=== PATIENT | female | born 1940 | race Caucasian/White ===

== ENCOUNTER → 2016-07-26 | Outpatient (CLI) | payer OTHER ==
[~2016-07-26] MED LIST: ASPI-496 PO; DOCU100T3 PO; HYDR-3240 PO; HYDR1TAB12 PO; LISI-170 PO; ONDA4TAB10 PO; PRAV40TA2 PO
== END | disposition home or self-care (01) ==
LOC: CFH 10:47
PROVIDERS: ATTEND Internal Medicine Cardiovascular Disease
DX: I35.0 Nonrheumatic aortic (valve) stenosis (principal)
CPT/HCPCS: 93306

== ENCOUNTER → 2019-02-25 | Outpatient (CLI) | payer MEDICARE ==
[~2019-02-25] MED LIST changes: +ATEN50TA41 PO; +CHOL400C11 PO; +CLOP75TA PO; -HYDR1TAB12 PO; +HYDR1TAB13 PO; +TELM80TA PO; +VISIPAQUE 320 MG/ML, 150ML BOTTLE ONE; +VITAMIN D3
== END | disposition home or self-care (01) ==
LOC: CVU 11:31
PROVIDERS: ATTEND Internal Medicine Cardiovascular Disease
DX: I65.23 Occlusion and stenosis of bilateral carotid arteries (principal); I70.0 Atherosclerosis of aorta; I10 Essential (primary) hypertension; E78.5 Hyperlipidemia, unspecified; I35.0 Nonrheumatic aortic (valve) stenosis
CPT/HCPCS: 71275; 74174; 93880; 94010; 94726; 94729; Q9967

== ENCOUNTER 2019-03-17 05:55 | Inpatient (IN) | payer MEDICARE ==
[~2019-03-17] VITALS: Ht 149.9 cm; Wt 59.5 kg
[~2019-03-17 05:55] MED LIST changes: -VISIPAQUE 320 MG/ML, 150ML BOTTLE ONE
[2019-03-17] MEDS ORDERED: SODIUM CHLORIDE 0.9% 1,000 ML IV ONE (06:05)
[2019-03-17] MEDS ORDERED: CHLORHEXIDINE 15 ML UDC ONE (06:15)
[2019-03-17] MEDS ORDERED: ATOR40TA78 PO (06:17)
[2019-03-17] MEDS ORDERED: AMLO2.5T5 PO (06:17)
[2019-03-17] MEDS ORDERED: MULT-658 PO (06:18)
[2019-03-17 06:19] VITALS: BP 167/61
[2019-03-17] MEDS ORDERED: ONDANSETRON 2MG/ML, 2ML IVPush PRN ×2 (06:30→09:00)
[2019-03-17] MEDS ORDERED: CHLORHEXIDINE 15 ML UDC MM PRN (06:30)
[2019-03-17 06:45] LABS: BASOPHILS # (AUTO) 0.04 x10^3/uL (0-0.1); BASOPHILS % (AUTO) 0 % (0-1); EOSINOPHILS # (AUTO) 0.18 x10^3/uL (0-0.4); EOSINOPHILS % (AUTO) 2 % (1-7); LYMPHOCYTES # (AUTO) 2.16 x10^3/uL (1-3.4); LYMPHOCYTES % (AUTO) 25 % (22-44); MD NO; MEAN CORPUSCULAR HEMOGLOBIN 29.5 pg (27.0-34.8); MEAN CORPUSCULAR HGB CONC 33.3 g/dL (32.4-35.8); MEAN CORPUSCULAR VOLUME 88.6 fL (80-100); MEAN PLATELET VOLUME 7.8 fL (7.4-10.4); MONOCYTES # (AUTO) 0.69 x10^3/uL (0.2-0.8); MONOCYTES % (AUTO) 8 % (2-9); NEUTROPHILS # (AUTO) 5.76 x10^3/uL (1.8-6.8); NEUTROPHILS % (AUTO) 65 % (42-75); PLATELET COUNT 271 x10^3/uL (130-400); RED BLOOD COUNT 4.41 x10^6/uL (3.82-5.3); RED CELL DISTRIBUTION WIDTH 14.7 % (9.6-15.2)
[2019-03-17 06:56] LABS: INTERNATIONAL NORMALIZED RATIO 0.96 (0.93-1.1); PROTHROMBIN TIME 10.1 Seconds (9.6-11.5)
[2019-03-17 06:58] LABS: ALANINE AMINOTRANSFERASE 55 U/L (12-78); ALBUMIN 4.6 g/dL (3.4-5.0); ANION GAP 8 mmol/L (5-15); CALCIUM 9.7 mg/dL (8.5-10.1); CHLORIDE 104 mmol/L (98-107); CREATININE 1.21 mg/dL (0.55-1.02)
[2019-03-17] MEDS ORDERED: PLEASE ENTER HEIGHT AND WEIGHT MC SCH (07:00)
[2019-03-17 07:02] LABS: ALKALINE PHOSPHATASE 88 U/L (45-117); BILIRUBIN,TOTAL 0.5 mg/dL (0.2-1.0); TOTAL PROTEIN 8.3 g/dL (6.4-8.2)
[2019-03-17] MEDS ORDERED: FENTANYL PF 250 MCG/5ML ONE (07:23)
[2019-03-17] MEDS ORDERED: PROPOFOL 10 MG/ML, 20ML ONE (07:29)
[2019-03-17] MEDS ORDERED: HEPARIN 1,000 UNITS/ML, 30ML ONE (07:29)
[2019-03-17] MEDS ORDERED: ROCURONIUM 10MG/ML,5ML ONE (07:29)
[2019-03-17] MEDS ORDERED: ONDANSETRON 2MG/ML, 2ML ONE ×3 (07:30→07:36)
[2019-03-17] MEDS ORDERED: DEXAMETHASONE 4 MG/ML, 1ML ONE ×3 (07:30→07:36)
[2019-03-17] MEDS ORDERED: GLYCOPYRROLATE 0.2MG/1ML, 5ML ONE (07:36)
[2019-03-17] MEDS ORDERED: CEFAZOLIN 1,000 MG ONE (07:36)
[2019-03-17] MEDS ORDERED: SUCCINYLCHOLINE 20 MG/ML, 10ML ONE (07:36)
[2019-03-17] MEDS ORDERED: PHENYLEPHRINE 10 MG/ML ONE (07:36)
[2019-03-17] MEDS ORDERED: PROTAMINE SULFATE 10 MG/ML, 25ML ONE (08:32)
[2019-03-17] MEDS ORDERED: CLOPIDOGREL 300 MG TABLET PO ONE (09:00)
[2019-03-17] MEDS ORDERED: LABETALOL 5 MG/ML SYR. (IV ONLY) IVPush PRN (09:00)
[2019-03-17] MEDS ORDERED: ACETAMINOPHEN 325 MG TABLET PO PRN (09:00)
[2019-03-17] MEDS ORDERED: hydrALAzine 20 MG/ML, 1ML IVPush PRN (09:00)
[2019-03-17 10:30] VITALS: BP 140/47
[2019-03-17 15:12] VITALS: BP 144/57
[2019-03-17 16:31] VITALS: BP 104/72
[2019-03-17 19:49] VITALS: BP 123/61
[2019-03-17] MEDS: AMLODIPINE 2.5 MG TABLET PO SCH (20:47)
[2019-03-17] MEDS ORDERED: ATORVASTATIN 40 MG TABLET PO SCH (21:00)
[2019-03-17] MEDS ORDERED: TEMAZEPAM 15 MG CAPSULE PO PRN (21:30)
[2019-03-18 01:39] VITALS: BP 118/60
[2019-03-18 05:26] LABS: BASOPHILS # (AUTO) 0.02 x10^3/uL (0-0.1); BASOPHILS % (AUTO) 0 % (0-1); EOSINOPHILS # (AUTO) 0.02 x10^3/uL (0-0.4); EOSINOPHILS % (AUTO) 0 % (1-7); LYMPHOCYTES # (AUTO) 1.76 x10^3/uL (1-3.4); LYMPHOCYTES % (AUTO) 13 % (22-44); MD NO; MEAN CORPUSCULAR HEMOGLOBIN 29.3 pg (27.0-34.8); MEAN CORPUSCULAR HGB CONC 32.5 g/dL (32.4-35.8); MEAN CORPUSCULAR VOLUME 90.2 fL (80-100); MEAN PLATELET VOLUME 8.2 fL (7.4-10.4); MONOCYTES # (AUTO) 1.02 x10^3/uL (0.2-0.8); MONOCYTES % (AUTO) 8 % (2-9); NEUTROPHILS # (AUTO) 10.45 x10^3/uL (1.8-6.8); NEUTROPHILS % (AUTO) 79 % (42-75); PLATELET COUNT 209 x10^3/uL (130-400); RED BLOOD COUNT 3.75 x10^6/uL (3.82-5.3)
[2019-03-18 05:27] LABS: ANION GAP 5 mmol/L (5-15); CALCIUM 8.8 mg/dL (8.5-10.1); CHLORIDE 108 mmol/L (98-107)
[2019-03-18 05:28] LABS: CREATININE 1.01 mg/dL (0.55-1.02)
[2019-03-18 08:52] VITALS: BP 115/56
[2019-03-18] MEDS ORDERED: CHOLECALCIFEROL 400 UNITS TABLET PO SCH (09:00)
[2019-03-18] MEDS ORDERED: MULTIVITAMIN 1 TABLET PO SCH (09:00)
[2019-03-18] MEDS ORDERED: CLOPIDOGREL 75 MG TABLET PO SCH ×2 (09:00)
[2019-03-18] MEDS: AMLODIPINE 2.5 MG TABLET PO SCH (09:00)
[2019-03-18] MEDS ORDERED: ASPIRIN 81 MG TABLET EC PO SCH ×2 (09:00)
[2019-03-18] MEDS ORDERED: VALSARTAN 320 MG TABLET PO SCH (09:00)
[2019-03-18] MEDS ORDERED: DOCUSATE 100 MG CAPSULE PO SCH (09:00)
[2019-03-18] MEDS ORDERED: ACET325T26 PO (09:37)
[2019-03-18] MEDS ORDERED: TEMA15CA6 PO (09:44)
== END 2019-03-18 12:25 | disposition home or self-care (01) | DRG 266 ==
LOC: ORIP 05:55 → CCU 08:49 → 5SO 10:10 → DCLOUNGE 03-18 11:55
PROVIDERS: ADMIT Internal Medicine Cardiovascular Disease; ATTEND Internal Medicine Cardiovascular Disease
PROC: B24BZZ4 Ultrasonography of Heart with Aorta, Transesophageal (ICD-10-PCS; 2019-03-17)
PROC: 03HY32Z Insertion of Monitoring Device into Upper Artery, Percutaneous Approach (ICD-10-PCS; 2019-03-17)
PROC: B310YZZ Fluoroscopy of Thoracic Aorta using Other Contrast (ICD-10-PCS; 2019-03-17)
PROC: 02RF38Z Replacement of Aortic Valve with Zooplastic Tissue, Percutaneous Approach (ICD-10-PCS; principal; 2019-03-17 07:30)
DX: I35.0 Nonrheumatic aortic (valve) stenosis (principal); Z00.6 Encounter for examination for normal comparison and control in clinical research program; I50.33 Acute on chronic diastolic (congestive) heart failure; Z86.73 Personal history of transient ischemic attack (TIA), and cerebral infarction without residual deficits; I48.0 Paroxysmal atrial fibrillation; E78.5 Hyperlipidemia, unspecified; R00.1 Bradycardia, unspecified
CPT/HCPCS: 33361; 36415; 80048; 80053; 83880; 85025; 85347; 85610; 85730; 86850; 86900; 86923; 87081; 93005; 93306; 93312; 93321; 93325; 93355; C1760; C1769; C1894; G0378; J0690; J1100; J1644; J2405; J2704; J2720; J3010; J0330; J0360; J2370; Q9967

== ENCOUNTER 2019-04-20 13:45 | Outpatient (CLI) | payer MEDICARE ==
[~2019-04-20 13:45] MED LIST changes: +ACET325T26 PO; +AMLO2.5T5 PO; +ATOR40TA78 PO; +MULT-658 PO; +TEMA15CA6 PO
== END 2019-04-20 23:59 | disposition home or self-care (01) ==
LOC: CVU 13:45
PROVIDERS: ATTEND Internal Medicine Cardiovascular Disease
DX: I08.8 Other rheumatic multiple valve diseases (principal); I27.20 Pulmonary hypertension, unspecified; I11.9 Hypertensive heart disease without heart failure; E78.5 Hyperlipidemia, unspecified; I65.29 Occlusion and stenosis of unspecified carotid artery; Z95.2 Presence of prosthetic heart valve
CPT/HCPCS: 93306; 93356

== ENCOUNTER 2019-05-19 12:02 | Outpatient (CLI) | payer MEDICARE | END 2019-05-19 23:59 | disposition home or self-care (01) | LOC: RAD 12:02 | PROVIDERS: ATTEND Internal Medicine | DX: M47.815 Spondylosis without myelopathy or radiculopathy, thoracolumbar region (principal); M48.05 Spinal stenosis, thoracolumbar region; M54.41 Lumbago with sciatica, right side | CPT/HCPCS: 72148 ==

== ENCOUNTER → 2020-03-17 | Outpatient (CLI) | payer MEDICARE | END | disposition home or self-care (01) | LOC: CVU 13:21 | PROVIDERS: ATTEND Internal Medicine Cardiovascular Disease | DX: I07.1 Rheumatic tricuspid insufficiency (principal); I11.9 Hypertensive heart disease without heart failure; R06.02 Shortness of breath; I65.29 Occlusion and stenosis of unspecified carotid artery | CPT/HCPCS: 93306; 93356 ==

== ENCOUNTER 2020-03-31 10:27 | Day surgery (SDC) | payer MEDICARE ==
[2020-03-31] MEDS ORDERED: LIDOCAINE 1%, 20ML ONE (11:11)
[2020-03-31] MEDS ORDERED: LIDOCAINE 2%, 20ML SQ PRN (11:30)
== END 2020-03-31 12:00 | disposition home or self-care (01) ==
LOC: CACL 10:27
PROVIDERS: ATTEND Internal Medicine Cardiovascular Disease
DX: I63.9 Cerebral infarction, unspecified (principal); I48.0 Paroxysmal atrial fibrillation; I10 Essential (primary) hypertension; I65.23 Occlusion and stenosis of bilateral carotid arteries; I69.351 Hemiplegia and hemiparesis following cerebral infarction affecting right dominant side; E78.5 Hyperlipidemia, unspecified; Z79.82 Long term (current) use of aspirin; Z79.899 Other long term (current) drug therapy; Z95.2 Presence of prosthetic heart valve; Z98.1 Arthrodesis status
CPT/HCPCS: 33285; C1764